=== PATIENT | male | born 2000 | race Caucasian/White ===

== ENCOUNTER 2025-02-17 09:06 | Emergency (ER) | payer BC ==
[2025-02-17 09:12] VITALS: BMI 25.7
[2025-02-17] MEDS ORDERED: ONDANSETRON 4 MG/2 ML VIAL ONE (09:42)
[2025-02-17] MEDS: ONDANSETRON 4 MG/2 ML VIAL IVPUSH ONE (09:50)
[2025-02-17] MEDS ORDERED: KETOROLAC TROMETHAMINE 15 MG/ML VIAL ONE (09:54)
[2025-02-17 10:04] LABS: MCHC 34.7 g/dl (32.3-36.5); MEAN CELL VOLUME 85.7 fl (79.0-92.2); MEAN PLT VOLUME 10.1 fl (9.4-12.4); RDW 11.9 % (11.9-15.3)
[2025-02-17] MEDS: KETOROLAC TROMETHAMINE 15 MG/ML VIAL IVPUSH ONE (10:09)
[2025-02-17] MEDS: SODIUM CHLORIDE 0.9% 500 ML INFUS.BAG IV ONE (10:10)
[2025-02-17 10:25] LABS: GLUCOSE,RANDOM 110.0 mg/dL (74-106); TOT PROT 8.2 g/dl (6.4-8.2)
[2025-02-17 10:26] LABS: CO2 23.0 mmol/L (21-32)
[2025-02-17 10:28] LABS: ALK PHOS 100.0 U/L (40-150)
[2025-02-17 10:31] LABS: CREATININE 1.04 mg/dL (0.55-1.3); SGOT/AST 33.0 U/L (5-34); SGPT/ALT 36.0 U/L (0-55)
[2025-02-17 10:45] LABS: URINE APPEARANCE CLEAR; URINE BILIRUBIN NEGATIVE (NEGATIVE); URINE COLOR YELLOW; URINE GLUCOSE (UA) NEGATIVE (NEGATIVE); URINE KETONE NEGATIVE (NEGATIVE); URINE LEUK ESTERASE NEGATIVE (NEGATIVE); URINE NITRITE NEGATIVE (NEGATIVE); URINE PROTEIN NEGATIVE (NEGATIVE); URINE UROBILINOGEN 1.0 mg/dL (0.2-1.0)
[2025-02-17 11:22] LABS: HCV DIAGNOSTIC IN-HOUSE W/RFLX NON-REACTIVE (NONREACTIVE); HIV INTERPRETATION NEGATIVE (NEGATIVE)
[2025-02-17] MEDS ORDERED: CEFTRIAXONE 1 GM/50 ML BAG ONE (13:23)
[2025-02-17] MEDS: CEFTRIAXONE 1 GM in DEXTROSE 5%-WATER - 100 ML IVPB ONE (13:26)
[2025-02-17 13:39] VITALS: BP 117/54; PULSE 94; RESP 20; TEMP 98.2
== END 2025-02-17 13:52 | disposition home or self-care (01) ==
LOC: JER 09:06
PROC: 3E03329 Introduction of Other Anti-infective into Peripheral Vein, Percutaneous Approach (ICD-10-PCS; principal; 2025-02-17)
PROC: 3E0333Z Introduction of Anti-inflammatory into Peripheral Vein, Percutaneous Approach (ICD-10-PCS; 2025-02-17)
PROC: 3E033GC Introduction of Other Therapeutic Substance into Peripheral Vein, Percutaneous Approach (ICD-10-PCS; 2025-02-17)
DX: L73.9 Follicular disorder, unspecified (principal); I88.9 Nonspecific lymphadenitis, unspecified; M79.652 Pain in left thigh; R10.31 Right lower quadrant pain; R11.0 Nausea; R19.7 Diarrhea, unspecified
CPT/HCPCS: 36415; 74177-TC; 80053; 81003; 83605; 85027; 86803; 87086; 87389; 99285-25; Q9967